=== PATIENT | male | born 1995 | race African-American/Black ===

== ENCOUNTER 2020-07-18 16:27 | Emergency (ER) | payer OTHER ==
--- NOTE | 2020-07-18 16:43 | RAD ---
MIDDLE FINGER LEFT HAND: 07/18/20 Three views. HISTORY: Injury with pain. FINDINGS: transverse fracture involving the distal phalanx of the middle finger with dorsal displacement of the tuft of this phalanx. Associated soft tissue injury. IMPRESSION: Displaced fracture involving the tuft of the distal phalanx of the middle finger. POS: AGW
[2020-07-18] MEDS ORDERED: Boostrix 0.5 ML (Tdap) VIAL ONE (18:21)
[2020-07-18] MEDS ORDERED: CEFAZOLIN 1 GM VIAL ONE (18:22)
[2020-07-18] MEDS ORDERED: Lidocaine 1% PF 5 ML VIAL ONE (18:26)
[2020-07-18] MEDS ORDERED: Bacitracin 1 PK ONE (19:46)
== END 2020-07-18 20:02 | disposition home or self-care (01) ==
LOC: ERS 16:27
DX: S62.633B Displaced fracture of distal phalanx of left middle finger, initial encounter for open fracture (principal); F17.220 Nicotine dependence, chewing tobacco, uncomplicated; W23.0XXA Caught, crushed, jammed, or pinched between moving objects, initial encounter
CPT/HCPCS: 12002; 90471; 90715; 96372; J0690